=== PATIENT | female | born 1985 | race Hispanic/Latino ===

== ENCOUNTER 2024-04-15 10:18 | Day surgery (SDC) | payer OTHER, SELFPAY ==
[2024-04-08 09:03] VITALS: BMI 28.6
[2024-04-08 09:25] LABS: % Basophils 0.4 % (0-2); % Eosinophils 1.2 % (0-6); % Immature Granulocytes 0.3 % (0-0.5); % Lymphocytes 24.2 % (20.5-51.1); % Neutrophils 67.9 % (42.2-75.2); Absolute Eosinophils 0.1 10^3/uL (0-0.7); Absolute Lymphocytes 1.8 10^3/uL (1.2-3.4); Absolute Monocytes 0.5 10^3/uL (0.1-0.6); Absolute Neutrophils 5.1 10^3/uL (1.4-6.5); Hematocrit 33.1 % (37.0-47.0); Hemoglobin 10.4 g/dL (12.0-16.0); Mean Corp Hgb Conc. 31.4 g/dL (33.0-37.0); Mean Corpuscular Hgb 24.2 pg (27.0-31.0); Mean Platelet Volume 11.9 fL (7.4-10.4); Nucleated Red Blood Cells % 0 %; Platelet Count 241 10^3/uL (130-400); Red Cell Dist. Width 15.3 % (11.5-14.5); White Blood Cell Count 7.5 10^3/uL (4.8-10.8)
[2024-04-08 10:03] LABS: HCG, Serum Qualitative Screen Negative
[2024-04-08 10:06] LABS: ALT (SGPT) 25 U/L (0-35); AST (SGOT) 25 U/L (14-36); Albumin 4.4 g/dl (3.5-5.0); Alkaline Phosphatase 72 U/L (38-126); Blood Urea Nitrogen 12 mg/dl (7-17); Carbon Dioxide 26 mmol/L (22-30); Chloride 105 mmol/L (98-107); Estimated Creatinine Clearance 103 ml/min; Glucose 104 mg/dl (70-99); Magnesium 2.1 mg/dl (1.6-2.3); Sodium 138 mmol/L (135-145); Total Bilirubin 0.5 mg/dl (0.2-1.3); Total Protein 7.2 g/dl (6.3-8.2); eGFR > 60.00
[2024-04-08 10:07] LABS: Potassium 4.3 mmol/L (3.5-5.1)
[2024-04-15 10:30] VITALS: BP 111/72
[2024-04-15 10:51] VITALS: BP 111/72
[2024-04-15 11:04] LABS: HCG, Urine Qualitative Screen Negative
[2024-04-15 15:53] VITALS: BP 110/76
--- NOTE | 2024-04-15 15:55 | ITS.EPS ---
Pattern Setter - EPS Report
EPS
Procedure Report:
Primary Physician: Juliocesar Bueno MD
Primary Hand Brim Ironer: Denice Sosa MD
Procedure Date: 04/15/2024
Procedure
IV drug for arrhythmia induction
Patient History
Patient is a pleasant 37-year-old female with past medical history significant for MS and iron deficiency anemia who presented with episodes of PVCs and nonsustained VT. Patient has not experienced sustained VT or syncope. Patient had normal
transthoracic echocardiogram, normal cardiac MRI with no evidence of LV RV dysfunction or infiltrative disease, and a negative left heart catheterization.
Method
After informed consent was obtained, the patient was brought to the EP lab in a post-absorptive, non-sedated state. A peripheral IV was in place. Continuous electrocardiography, blood pressure and pulse oximetry monitoring was initiated and
cardioversion / defibrillator electrodes were positioned on the chest in an AP orientation. A 'time-out' was called. Patient was administered isoproterenol and monitored on ECG recording system. With increasing doses of isoproterenol patient
achieved a heart rate of 140-150 bpm in sinus rhythm. During that time, patient experienced and demonstrated no clinical PVCs. Patient's clinical PVC based on prior stress testing/ECG evidence showed a left bundle, right axis, inferior axis, V3
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 She experienced 4 nonclinical PVCs at various times during isoproterenol infusion with right bundle left superior axis positive for the precordium consistent with inferior mitral
valve PVC. Following isoproterenol washout, patient still demonstrated no clinical PVCs. Patient had not been given any conscious sedation or sedating medications. Due to lack of clinical PVCs with and without isoproterenol infusion at heart rate
similar to experienced during stress testing or clinical PVCs were evident, procedure was concluded.
Complications
None
Baseline Intervals:
Rhythm: SR
DC: 143 ms
QRS: 63 ms
QT: 371 ms
QTc: 456 ms
A-A: 723 ms
R-R: 723 ms
Recommendations
- Discharge home
- Continue home medications as indicated including beta-candelaria
- Start flecainide 50 mg twice daily with ECG visit on 04/17/2024
- Follow-up in office in 4-6 weeks
Pete Dozier,
Clinical Cardiac Electrophysiology
cc: Denice Sosa MD; Juliocesar Bueno MD
== END 2024-04-15 16:46 | disposition home or self-care (01) ==
LOC: CATH 10:18
PROVIDERS: ATTENDING PHYSICIAN Internal Medicine Cardiovascular Disease; FAMILY PHYSICIAN Family Medicine; OTHER PHYSICIAN Internal Medicine Cardiovascular Disease
DX: I49.3 Ventricular premature depolarization (principal); I47.29 Other ventricular tachycardia; G35 Multiple sclerosis; D64.9 Anemia, unspecified
CPT/HCPCS: 93799; 36415; 80053; 81025; 83735; 84703; 85025; 86850; 86900; 86901; 93005